=== PATIENT | female | born 1960 | race Caucasian/White ===

== ENCOUNTER → 2019-12-26 10:26 | Outpatient (CLI) | payer OTHER, SELFPAY ==
--- NOTE | ~2019-12-26 | DEXA_ITS ---
Bone Density Report Name: Alexia Wakefield Age: 59 Sex: Female Ethnicity: White Date of : 1960 Indication: postmenopausal; screening for osteoporosis; height loss; Referring Provider: Franca Corrales Study: Bone densitometry was performed. Exam Date: December 26, 2019 Accession number: [id number] Bone Density: Region BMD T-score Z-score Classification AP Spine (L1-L4) 0.946 -0.9 0.4 Normal Femoral Neck (Left) 0.699 -1.4 -0.1 Osteopenia Total Hip (Left) 0.930 -0.1 0.8 Normal Femoral Neck (Right) 0.739 -1.0 0.2 Normal Total Hip (Right) 0.944 0.0 0.9 Normal Total Hip Mean 0.937 -0.1 0.9 Normal World Health Organization criteria for BMD impression classify patients as: Normal (T-score at or above -1.0), Osteopenia (T-score between -1.0 and -2.5), or Osteoporosis (T-score at or below -2.5). 10-year Fracture Risk(1): Major Osteoporotic Fracture 7.3% Hip Fracture 0.5% Reported Risk Factors: [place] (), Neck BMD=0.699, BMI=27.2 (1) FRAX(R) Version 3.08. Fracture probability calculated for an untreated patient. Fracture probability may be lower if the patient has received treatment. Previous Exams: Region Exam Age BMD T-score BMD Change BMD Change Date g/cm2 vs Baseline vs Previous AP Spine(L1-L4) 12/26/2019 59 0.946 -0.9 -0.100* -0.100* 07/09/2013 52 1.046 0.0 Total Hip(Left) 12/26/2019 59 0.930 -0.1 0.002 0.002 07/09/2013 52 0.928 -0.1 Total Hip(Right) 12/26/2019 59 0.944 0.0 -0.021 -0.021 07/09/2013 52 0.965 0.2 *Denotes significance at 95% confidence level, LSC for AP Spine = 0.022 g/cm2, LSC for Total Hip = 0.027 g/cm2 Clinical Information Provided by Patient: Patient maximum height was 61 Menopause Age: 52 Does not regularly consume dairy products Drinks caffeinated beverages Onset of menses at age 13 Number of children 2 Impression: The patient has low bone mass, based on the Left Femoral Neck T-score. The patient has an estimated ten-year risk of hip fracture of 0.5% and an estimated ten-year risk of major fracture of 7.3%, based on the WHO FRAX algorithm. The BMD for the AP Spine(L1-L4) decreased, changing by -0.100 since the last DXA exam. Discussion: BONE DENSITY IS LOW AT ONE OR MORE SKELETAL SITES. This patient's lowest T-score is low at one or more skeletal sites. It meets the World Health Organization's (WHO) criteria for
== END ==
PROVIDERS: PCP Internal Medicine; Visit Provider Clinical Nurse Specialist
DX: Z13.820 Encounter for screening for osteoporosis (principal); Z78.0 Asymptomatic menopausal state; M85.852 Other specified disorders of bone density and structure, left thigh
CPT/HCPCS: 77080

== ENCOUNTER → 2020-02-11 12:18 | Outpatient (CLI) | payer OTHER, SELFPAY ==
--- NOTE | ~2020-02-11 | MM_ITS ---
EXAMINATION: MM screening [facility] BI w desiree HISTORY: Screening TECHNIQUE: Craniocaudal and mediolateral oblique 3-D tomosynthesis images were obtained and synthetic 2-D images were generated. CAD analysis was submitted and interpreted. COMPARISON: No prior mammogram is available for comparison at this institution. BREAST PARENCHYMAL COMPOSITION: Comparison to multiple prior studies sequentially, with oldest review ed study dated 09/05/2011. FINDINGS: The breasts are heterogenously dense, which may obscure small masses. There is no evidence of suspicious mass, calcification, or architectural distortion to suggest malignancy in either breast . There has been no suspicious interval change. IMPRESSION: 1. No mammographic evidence of malignancy. 2. Recommend routine screening mammography in one year. BI-RADS Category 1: Negative Reviewed, dictated and finalized at location A. LASS FITTER
== END ==
PROVIDERS: PCP Internal Medicine; Visit Provider Nurse Practitioner Obstetrics & Gynecology
DX: Z12.31 Encounter for screening mammogram for malignant neoplasm of breast (principal)
CPT/HCPCS: 77063; 77067

== ENCOUNTER 2020-09-25 07:58 | Outpatient (CLI) | payer OTHER, SELFPAY ==
--- NOTE | 2020-10-18 14:19 | WPDHOMESLEEP ---
Sleep Study - Home Unattended Date of Study: 09/25/20 Ordering Provider: VENANCIO Rivas-C Interpreting Provider: Yesika Ortiz MD [facility] Study Type: Watch PAT Height: 1.52 m Weight: 61.235 kg Body Mass Index: 26.4 Neck Circumference (inches): 13.25 [place]: 10 Reason for Sleep Study Hypersomnia Sleep History Alexia Wakefield is a 59 year old female with poor sleep; she does not wake up feeling refreshed. Is difficult for her to wake in the morning. There is a family history of sleep issues, her mother had obstructive sleep apnea. She is a light sleeper and wakes up frequently through the night. This is been going on for several years. She does not awaken from sleep feeling short of breath. She rarely awakens at night with heartburn, belching or coughing. She rarely snores. She does not snore loudly enough that others complain about it. She rarely has trouble sleeping with a cold. She does not wake up gasping for breath during the night. She does not have breathing problems at night observed by others. She rarely sweats excessively at night. She does not notice her heart pounding or beating irregularly at night. She occasionally falls asleep during the day, rarely falls asleep involuntarily but never falls asleep while driving. She does not have loss of muscle tone with strong emotion. She rarely has daytime difficulties due to excessive sleepiness. She does not feel paralyzed on waking or falling asleep. She occasionally has vivid dreamlike scenes upon awakening or falling asleep. She does not feel afraid to go to sleep. She occasionally has nightmares, occasionally remembers her dreams. She occasionally has racing thoughts, feelings of sadness, depression and anxiety. She rarely has muscular tension. She rarely notices parts of her body jerking. She does not kick at night and does not have crawling or aching feelings in her legs. She rarely has leg pain at night. She does not have morning jaw pain and does not grind her teeth during sleep. She rarely is bothered by pain during the day. She occasionally is awakened by pain during the night and occasionally wakes up feeling stiff in the morning. She rarely wakes up with sore or achy muscles. She rarely wakes up with pain in the neck and spine. She has fatigue, memory problems, nightmares and bowel disturbances. She reports a 25 lb weight gain in the last year. Normal bedtime 11:30 pm taking 10 minutes but occasionally up to 2 hours to fall asleep. She uses doxepin as a sleep aid but prefers melatonin as she does not feel like she has a hangover the next day. She wakes 3-4 times during the night, on average stays awake for 30 minutes. The initial awakening occurs 2 hours after falling asleep. She tries to go back to sleep. Her dog often wakes her at 4:30 a.m. to go outside. She has racing thoughts when she wakes at night, and this can make it hard to return to sleep, She wakes at 6:00 a.m. and then wakes again at 8:00 a.m.. Her weekend schedule is the same. She sleeps with a dog in her bed. She sometimes takes naps in the afternoon or evening. She feels refreshed after a short nap. She is usually drowsy in the morning for 1 hour. She feels better in the afternoon compared to other times of day. Habits: never smoked tobacco. Caffeine 2-3 cups of coffee daily. Alcohol 1-2 daily. No recreational drugs. [facility] Past Medical History Medical History (Updated 10/18/20 @ 17:29 by Yesika Ortiz MD) Depression Diabetes Elevated bilirubin Exercise-induced asthma H/O one miscarriage Herniated disc Hyperlipidemia Hypertension Infertility Vitamin deficiency Surgical History Surgical History History of appendectomy 1997 Family History Family History Mother Patient's mother is Sibling Patient's brother is in good health
[2020-10-18 17:07] VITALS: BMI 26.4
== END 2020-09-28 10:17 | disposition home or self-care (01) ==
LOC: ANHCSM 07:59
PROVIDERS: PCP Internal Medicine; Visit Provider Clinical Nurse Specialist
DX: G47.10 Hypersomnia, unspecified (principal)
CPT/HCPCS: 95800

== ENCOUNTER → 2022-01-19 09:45 | Outpatient (CLI) | payer OTHER, SELFPAY ==
--- NOTE | ~2022-01-19 | DEXA_ITS ---
Bone Density Report Name: ITZEL BANG Age: 61 Sex: Female Ethnicity: White Date of : 1960 Indication: postmenopausal; screening for osteoporosis; Referring Provider: Franca Corrales Study: Bone densitometry was performed. Exam Date: January 19, 2022 Accession number: [id number] Bone Density: Region BMD T-score Z-score Classification AP Spine (L1-L4) 0.990 -0.5 1.0 Normal Femoral Neck (Left) 0.759 -0.8 0.5 Normal Total Hip (Left) 0.950 0.1 1.1 Normal Femoral Neck (Right) 0.808 -0.4 1.0 Normal Total Hip (Right) 0.971 0.2 1.2 Normal Total Hip Mean 0.961 0.2 1.2 Normal World Health Organization criteria for BMD impression classify patients as: Normal (T-score at or above -1.0), Osteopenia (T-score between -1.0 and -2.5), or Osteoporosis (T-score at or below -2.5). 10-year Fracture Risk: FRAX not reported because: All T-scores for Spine Total, Hip Total, Femoral Neck at or above -1.0 Previous Exams: Region Exam Age BMD T-score BMD Change BMD Change Date g/cm2 vs Baseline vs Previous AP Spine(L1-L4) 01/19/2022 61 0.990 -0.5 -0.056* 0.045* 12/26/2019 59 0.946 -0.9 -0.100* -0.100* 07/09/2013 52 1.046 0.0 Total Hip(Left) 01/19/2022 61 0.950 0.1 0.022 0.020 12/26/2019 59 0.930 -0.1 0.002 0.002 07/09/2013 52 0.928 -0.1 Total Hip(Right) 01/19/2022 61 0.971 0.2 0.006 0.026 12/26/2019 59 0.944 0.0 -0.021 -0.021 07/09/2013 52 0.965 0.2 *Denotes significance at 95% confidence level, LSC for AP Spine = 0.022 g/cm2, LSC for Total Hip = 0.027 g/cm2 Clinical Information Provided by Patient: Patient maximum height was 61 Menopause Age: 52 Does not regularly consume dairy products Drinks caffeinated beverages Onset of menses at age 13 Number of children 2 Impression: The patient has normal bone mass. No significant bone loss was observed. Discussion: BONE DENSITY IS ABOVE THE MINIMUM DESIRABLE LEVEL AT ALL SKELETAL SITES TESTED. This patient?s bone mineral density is above the minimum desirable level (T-score -1.0 or better) at all sites measured. The patient should follow a healthful lifestyle (good nutrition with adequate calcium and vitamin D, and appropriate weight-bearing exercise). Follow-Up: Consider repeating this study in 5 years or sooner if there is some new clinical indication.
== END ==
PROVIDERS: PCP Internal Medicine; Visit Provider Clinical Nurse Specialist
DX: Z78.0 Asymptomatic menopausal state (principal)
CPT/HCPCS: 77080

== ENCOUNTER → 2023-03-31 11:19 | Outpatient (CLI) | payer BC, SELFPAY ==
--- NOTE | ~2023-03-31 | MM_ITS ---
EXAMINATION: MM screening [facility] BI w desiree HISTORY: Screening mammogram TECHNIQUE: Craniocaudal and mediolateral oblique 3-D tomosynthesis images were obtained and synthetic 2-D images were generated. CAD analysis was submitted and interpreted. COMPARISON: 02/11/2020, 07/06/2018, 11/20/2016 BREAST PARENCHYMAL COMPOSITION: There are scattered areas of fibroglandular density. FINDINGS: No suspicious mass, calcification, or architectural distortion are identified in either [place] ast to suggest malignancy. There has been no suspicious interval change. IMPRESSION: 1. No mammographic evidence of malignancy. 2. Recommend routine screening mammography in one year. BI-RADS Category 1: Negative Reviewed, dictated and finalized at location A. DDED SOFTWARE MANAGER
== END ==
PROVIDERS: PCP Clinical Nurse Specialist; Visit Provider Clinical Nurse Specialist
DX: Z12.31 Encounter for screening mammogram for malignant neoplasm of breast (principal)
CPT/HCPCS: 77063; 77067

== ENCOUNTER 2023-12-07 14:53 | Outpatient (CLI) | payer BC, SELFPAY ==
--- NOTE | ~2023-12-07 | US_ITS ---
EXAMINATION:US venous doppler LE LT INDICATION:Left leg pain TECHNIQUE: Multiple grayscale, color flow and Doppler images of the left lower extremity deep venous systems were obtained and reviewed. COMPARISON: No prior studies for comparison. FINDINGS: The common femoral, superficial femoral and popliteal veins demonstrate normal respiratory variation, augmentation and compressibility. Color flow is also seen within the posterior tibial, pe roneal, and profunda veins. There is superficial venous thrombosis of the greater saphenous vein. IMPRESSION: 1: No lower extremity deep venous thrombosis. 2: Superficial venous thrombosis of the greater saphenous vein. Reviewed, dictated and finalized at location B.
== END 2023-12-07 14:54 | disposition home or self-care (01) ==
PROVIDERS: PCP Clinical Nurse Specialist; Visit Provider Nurse Practitioner
DX: I82.812 Embolism and thrombosis of superficial veins of left lower extremity (principal)
CPT/HCPCS: 93971

== ENCOUNTER 2023-12-07 16:35 | Outpatient (CLI) | payer BC, SELFPAY ==
[2023-12-07 16:59] LABS: Basophils Percent Auto 0.6 % (0.2-1.2); Eosinophils Absolute Auto 0.2 K/mm3 (0-0.3); Eosinophils Percent Auto 3.6 % (0-4.4); Hematocrit 39.7 % (37.0-47.0); Hemoglobin 13.2 g/dL (12.0-15.0); Immature Granulocyte Absolute 0.03 K/mm3 (0.00-0.031); Immature Granulocyte Percent A 0.5 % (0-0.5); Lymphocytes Absolute Auto 1.66 K/mm3 (0.9-3.2); Lymphocytes Percent Auto 26.9 % (18.3-44.2); Mean Corpuscular HGB Conc 33.2 g/dl (32-36); Mean Corpuscular Hemoglobin 32.7 pg (26-34); Mean Corpuscular Volume 98.3 fl (80-100); Mean Platelet Volume 8.4 fl (7.4-10.4); Monocytes Absolute Auto 0.4 K/mm3 (0.1-0.6); Monocytes Percent Auto 6.6 % (2.6-8.5); Neutrophils Absolute Auto 3.8 K/mm3 (1.3-6.7); Neutrophils Percent Auto 61.8 % (45.5-73.1); Platelet Count Result 247 k/mm3 (150-375); Red Blood Count 4.04 M/mm3 (4.2-5.4); Red Cell Distribution Width 12.8 % (11.5-14.5); White Blood Count 6.2 K/mm3 (4.5-10.0)
[2023-12-07 17:19] LABS: Alanine Aminotransferase 37 U/L (6-35); Albumin Level 4.2 g/dL (3.5-5.1); Alkaline Phosphatase 69 U/L (38-126); Anion Gap 8 mmol/L (4-12); Aspartate Amino Transferase 40 U/L (14-36); Bilirubin,Total 0.9 mg/dL (0.2-1.3); Blood Urea Nitrogen 20 mg/dL (7-17); Calcium 9.2 mg/dL (8.4-10.2); Carbon Dioxide 29 mmol/L (22-30); Chloride 101 mmol/L (98-107); Estimated Glomerular Filt Rate 56; Glucose 126 mg/dL (65-110); Potassium 3.6 mmol/L (3.4-5.0); Sodium 138 mmol/L (137-145)
[2023-12-12 10:58] LABS: Protein S Antigen, Free 154 % normal (50-147); Protein S Antigen, Total 165 % normal (70-140)
[2023-12-14 21:48] LABS: Factor V (Leiden) Mutation NEGATIVE
== END 2023-12-07 16:36 | disposition home or self-care (01) ==
LOC: ANHLAB 16:37
PROVIDERS: PCP Clinical Nurse Specialist; Visit Provider Nurse Practitioner
DX: I82.812 Embolism and thrombosis of superficial veins of left lower extremity (principal)
CPT/HCPCS: 36415; 80053; 81240; 81241; 84443; 85025; 85305; 85306

== ENCOUNTER 2024-02-07 10:32 | Outpatient (CLI) | payer BC, SELFPAY ==
--- NOTE | ~2024-02-07 | US_ITS ---
EXAMINATION:US venous doppler LE LT INDICATION:Thrombus of left greater saphenous vein TECHNIQUE: Multiple grayscale, color flow and Doppler images of the left lower extremity deep venous systems were obtained and reviewed. COMPARISON:12/07/2023 FINDINGS: The common femoral, superficial femoral and popliteal veins demonstrate normal respiratory variation, augmentation and compressibility. Color flow is also seen within the posterior tibial, pe roneal, and profunda veins. There is persistent superficial venous thrombosis of the greater saphenou s vein. IMPRESSION: 1: No lower extremity deep venous thrombosis. 2: Persistent superficial venous thrombosis of the left greater saphenous vein. Reviewed, dictated and finalized at location B. ER TERRAPIN IMPRESSION: 1: No lower extremity deep venous thrombosis. 2: Persistent superficial venous thrombosis of the left greater saphenous vein .
== END 2024-02-07 10:33 | disposition home or self-care (01) ==
PROVIDERS: PCP Clinical Nurse Specialist; Visit Provider Nurse Practitioner
DX: I82.812 Embolism and thrombosis of superficial veins of left lower extremity (principal)
CPT/HCPCS: 93971

== ENCOUNTER 2024-02-26 01:02 | Day surgery (SDC) | payer BC, SELFPAY ==
--- NOTE | 2024-01-02 15:08 | SUR.PREOP ---
Pt called to reschedule appointment due to the doctor being on PTO. Message left on patient's voicemail requesting a return call.
[2024-02-21 15:27] VITALS: BMI 31.2
--- NOTE | 2024-02-23 11:37 | PC.NURSE ---
Spoke with _patient regarding medication XARELTO. PATIENT verbalizes understanding that the last dose is to be taken on 02/23/2024 and the Endoscopist will instruct them when to restart after the procedure.
[2024-02-26 12:27] VITALS: BP 158/90; PULSE 82; RESP 16; TEMP 36; O2SAT 100
[2024-02-26] MEDS: LACTATED RINGERS 1,000 ML 150 ML IV CONT (12:35)
--- NOTE | 2024-02-26 13:17 | PM.HPGS ---
History of Present Illness History of Present Illness Consent: Risks, benefits, and alternatives have been discussed and questions answered. Patient agrees to proceed with procedure. Chief complaint: neoplasm screening Narrative: Alexia Wakefield is a 63 year old female here for screening colonoscopy, last one 10 years ago Review of Systems Review of Systems: All systems reviewed & are unremarkable except as noted in HPI and below PMFSH Past Medical History Medical History Depression Elevated bilirubin Exercise-induced asthma H/O one miscarriage Herniated disc Hyperlipidemia Hypertension Infertility Vitamin deficiency Surgical History Surgical History History of appendectomy 1997 Family History Family History Mother Patient's mother is Sibling Patient's brother is in good health Father Acute myocardial infarction Social History Social History Smoking status: Never smoker Alcohol intake: current Drinks per week: 10 Alcohol use details: DRINKS Substance use: never Substance use type: does not use Living arrangements: with family Spiritual care concerns: No Meds Home Medications and Allergies Home Medications ?Medication ?Instructions ?Recorded ?Confirmed ?Type aspirin 81 mg tablet,delayed 81 mg PO DAILY 10/14/19 02/26/24 History release (Enteric Coated Aspirin) multivitamin 1 tablet PO DAILY 10/14/19 02/26/24 History lisinopril 20 See Rx Instructions .Route 06/01/23 02/26/24 Rx mg-hydrochlorothiazide 25 mg tablet .COMPLEX #90 tabs sertraline 50 mg tablet 50 mg PO DAILY #90 tabs 06/01/23 02/26/24 Rx krill oil 500 mg capsule 500 mg PO DAILY 12/07/23 02/26/24 History magnesium citrate 100 mg capsule 100 mg PO DAILY 12/07/23 02/26/24 History rivaroxaban 20 mg tablet (Xarelto) 20 mg PO QPM #30 tabs 02/19/24 02/26/24 Rx Saccharomyces boulardii 1 cap PO DAILY 02/21/24 02/26/24 History Allergies Allergy/AdvReac Type Severity Reaction Status Date / Time clindamycin Allergy Unknown Hives Verified 02/26/24 12:25 Vital Signs Vital Signs - 24 hr 02/26/24 12:27 Temperature 96.8 F L Pulse Rate 82 Respiratory Rate 16 Blood Pressure 158/90 H Pulse Oximetry 100 Oxygen Delivery Room Air Exam Const: General: comfortable and no acute distress HENMT: Face/Nose/Sinus: Normal nares present Eyes: General: appearance normal, both eyes and all related structures Neck: Neck: no JVD Resp: Auscultation: clear to auscultation bilaterally Cardio: Rate: regular rate Rhythm: regular rhythm GI: Inspection: non-distended GI Palp: Yes Soft to palpation Skin: General skin exam: normal color Neuro: General: gait normal Speech: normal speech Extrem: General: normal to inspection Psych: Mental Status: mental status grossly normal Assessment and Plan Assessment and plan (1) Screening for colon cancer: Code(s): Z12.11 - Encounter for screening for malignant neoplasm of colon Status: Acute Assessment and Plan: colonoscopy
--- NOTE | 2024-02-26 13:19 | P.PNAN_ITS ---
Anes - Initial Pre Proc Eval Procedure: Operation Date: 02/26/24 13:30 Proposed Procedures p Screening Colonoscopy - Martin Sosa MD Date/Time: 02/26/24 13:19 Surgeon: Martin Sosa MD Pre Op Diagnosis: neoplasm screening Patient Data Age: 63 Gender: F Height: 1.52 m Weight: 71.9 kg Last Vital Signs Temp 96.8 F L 02/26/24 12:27 Pulse 82 02/26/24 12:27 Resp 16 02/26/24 12:27 BP 158/90 H 02/26/24 12:27 Pulse Ox 100 02/26/24 12:27 O2 Del Method Room Air 02/26/24 12:27 Allergies Allergy/AdvReac Type Severity Reaction Status Date / Time clindamycin Allergy Unknown Hives Verified 02/26/24 12:25 Home Medications ?Medication ?Instructions ?Recorded ?Confirmed ?Type aspirin 81 mg tablet,delayed 81 mg PO DAILY 10/14/19 02/26/24 History release (Enteric Coated Aspirin) multivitamin 1 tablet PO DAILY 10/14/19 02/26/24 History lisinopril 20 See Rx Instructions .Route 06/01/23 02/26/24 Rx mg-hydrochlorothiazide 25 mg tablet .COMPLEX #90 tabs sertraline 50 mg tablet 50 mg PO DAILY #90 tabs 06/01/23 02/26/24 Rx krill oil 500 mg capsule 500 mg PO DAILY 12/07/23 02/26/24 History magnesium citrate 100 mg capsule 100 mg PO DAILY 12/07/23 02/26/24 History rivaroxaban 20 mg tablet (Xarelto) 20 mg PO QPM #30 tabs 02/19/24 02/26/24 Rx Saccharomyces boulardii 1 cap PO DAILY 02/21/24 02/26/24 History Patient hx anesthesia problems: none Family hx anesthesia problems: none Results Review: All pre-operative results and documents have been reviewed as part of the pre- operative evaluation. [facility] Past Medical History Medical History Exercise-induced asthma Elevated bilirubin Herniated disc Infertility H/O one miscarriage Vitamin deficiency Hyperlipidemia Depression Hypertension Surgical History Surgical History History of appendectomy 1997 Family History Family History Mother Patient's mother is Sibling Patient's brother is in good health Father Acute myocardial infarction Social History Social History Smoking status: Never smoker Alcohol intake: current Drinks per week: 10 Alcohol use details: DRINKS Substance use: never Substance use type: does not use Living arrangements: with family Spiritual care concerns: No Anes - Eval Final PreProcedure Day of Procedure 02/26/24 13:19 Patient weight: obese Heart: regular rate and rhythm Lungs: clear to auscultation Airway: Mallampati scale class II Neurological: alert and oriented Last oral intake: >/= 8 hours ASA classification: II Emergent: no Anesthetic plan: proceed Anesthesia type and monitoring: general GIVS and standard monitoring Results Review: All pre-operative results and documents have been reviewed as part of the pre- operative evaluation. HTN, hyperlipidemia. Active without cp or sob. Informed Consent: The patient's anesthetic plan and its attendant risks and benefits were d iscussed with the patient/family/POA. Questions were solicited and answers provided to the satisfaction of the patient/family/POA.
[2024-02-26 13:49] VITALS: BP 112/77; PULSE 71; RESP 22; O2SAT 96
[2024-02-26 13:59] VITALS: BP 134/76; PULSE 67; RESP 20; O2SAT 97
[2024-02-26 14:09] VITALS: BP 124/86; PULSE 66; RESP 20; O2SAT 98
== END 2024-02-26 14:17 | disposition home or self-care (01) ==
PROVIDERS: PCP Clinical Nurse Specialist; Referring Provider Clinical Nurse Specialist; Visit Provider Internal Medicine Gastroenterology
PROC: 0DJD8ZZ Inspection of Lower Intestinal Tract, Via Natural or Artificial Opening Endoscopic (ICD-10-PCS; CPT 45378; principal; 2024-02-26 13:30)
DX: Z12.11 Encounter for screening for malignant neoplasm of colon (principal); K57.30 Diverticulosis of large intestine without perforation or abscess without bleeding; I10 Essential (primary) hypertension; E78.5 Hyperlipidemia, unspecified; F32.A Depression, unspecified; E66.9 Obesity, unspecified; Z68.31 Body mass index [BMI] 31.0-31.9, adult; Z79.01 Long term (current) use of anticoagulants; Z79.82 Long term (current) use of aspirin
CPT/HCPCS: 45378; J2003; J2704; J7120